=== PATIENT | male | born 1955 | race Caucasian/White ===

== ENCOUNTER 2017-10-02 12:11 | Emergency (ER) | payer SELFPAY ==
[~2017-10-02] VITALS: Ht 182.9 cm; Wt 81.6 kg
[2017-10-02 12:16] VITALS: Ht 182.9 cm; Wt 81.6 kg
[2017-10-02 16:21] VITALS: BP 141/94
== END 2017-10-02 16:20 | disposition home or self-care (01) ==
LOC: ED 12:11
DX: S80.02XA Contusion of left knee, initial encounter (principal); S00.83XA Contusion of other part of head, initial encounter; V89.2XXA Person injured in unspecified motor-vehicle accident, traffic, initial encounter; Y93.89 Activity, other specified; Y92.89 Other specified places as the place of occurrence of the external cause; Y99.8 Other external cause status